=== PATIENT | female | born 1955 | race Caucasian/White ===

== ENCOUNTER 2022-09-12 22:16 | Emergency (ER) | payer MEDICARE ==
[~2022-09-12] VITALS: Ht 167.6 cm; Wt 64.4 kg
[2022-09-12 22:27] VITALS: BP 167/105
[2022-09-12 22:31] VITALS: BP 162/90
[2022-09-12] MEDS ORDERED: CLARITIN10 M1 PO (22:36)
[2022-09-12] MEDS ORDERED: ALLERGY RE50 MCG/ACT NAB (22:37)
[2022-09-12 22:45] VITALS: BP 143/78
[2022-09-12 23:13] LABS: BASO% 1.5 % (0-3); EOS% 3.2 % (0-8); HEMATOCRIT 38.6 % (37.0-47.0); HEMOGLOBIN 12.6 g/dl (12.0-16.0); IMMATURE GRANULOCYTES 0.1 % (0.0-5.0); MEAN CELL VOLUME 90.6 fL CALC (80.0-100.0); MEAN CORPUSCULAR HGB 29.6 pG CALC (26.0-32.0); MEAN CORPUSCULAR HGB CONC 32.6 g/dL CAL (32.0-36.0); MONO% 7.2 % (2-13); NEUT# 4.27 thou/uL (2.00-7.15); RED BLOOD COUNT 4.26 mill/uL (4.20-5.60); RED CELL DISTRI WIDTH 12.4 % (11.5-15.5)
[2022-09-12 23:29] LABS: ALBUMIN 4.6 g/dL (3.2-5.0); ALKALINE PHOSPHATASE 84 u/l (38-126); ANION GAP 13 (6-22 (CALC)); BILIRUBIN, TOTAL 0.3 mg/dL (0.02-1.3); BUN 12 mg/dL (8-23); BUN/CREATININE RATIO 16 (12-20 (CALC)); CARBON DIOXIDE 27 mmol/l (22-30); CHLORIDE 100 mmol/l (95-108); CREATININE 0.8 mg/dL (0.5-1.0); GFR FOR AFR.AMER. > 60 ML/MIN (>=60 (CALC)); GFR OTHER RACES > 60 ML/MIN (>=60 (CALC)); POTASSIUM 4.2 mmol/l (3.5-5.1); SGOT/AST 32 u/l (9-36); SODIUM 135 mmol/l (137-146); TOTAL PROTEIN 7.8 g/dL (6.3-8.2)
[2022-09-12] MEDS ORDERED: CLARITIN10 M2 PO (23:38)
[2022-09-12] MEDS ORDERED: AMOXICILLIN500 MG PO (23:38)
[2022-09-12 23:40] VITALS: BP 143/78
== END 2022-09-13 00:02 | disposition home or self-care (01) ==
LOC: ED 22:16
PROVIDERS: Emergency Medicine
DX: J06.9 Acute upper respiratory infection, unspecified (principal); Z20.822 Contact with and (suspected) exposure to COVID-19

== ENCOUNTER 2022-09-22 17:33 | Emergency (ER) | payer MEDICARE ==
[~2022-09-22] VITALS: Ht 167.6 cm; Wt 61.0 kg
[~2022-09-22 17:33] MED LIST: ALLERGY RE50 MCG/ACT NAB; AMOXICILLIN500 MG PO; CLARITIN10 M1 PO; CLARITIN10 M2 PO
[2022-09-22] MEDS ORDERED: LEVOCETIRIZINE D5 MG PO (19:09)
[2022-09-22] MEDS ORDERED: MEDDOSEPAK PO (19:09)
[2022-09-22 20:02] VITALS: BP 169/97
== END 2022-09-22 20:12 | disposition home or self-care (01) ==
LOC: ED 17:33
DX: J30.9 Allergic rhinitis, unspecified (principal)

== ENCOUNTER 2022-10-13 15:29 | Emergency (ER) | payer MEDICARE ==
[~2022-10-13] VITALS: Ht 167.6 cm; Wt 61.7 kg
[2022-10-13] VITALS (8 sets, daily range): BP systolic 119–168; BP diastolic 69–100
[~2022-10-13 15:29] MED LIST changes: +LEVOCETIRIZINE D5 MG PO; +MEDDOSEPAK PO
[2022-10-13 16:32] LABS: EOS% 1.5 % (0-8); HEMATOCRIT 39.9 % (37.0-47.0); IMMATURE GRANULOCYTES 0.1 % (0.0-5.0); LYMPH% 27.6 % (15-41); MEAN CELL VOLUME 90.9 fL CALC (80.0-100.0); MEAN CORPUSCULAR HGB 29.6 pG CALC (26.0-32.0); MEAN CORPUSCULAR HGB CONC 32.6 g/dL CAL (32.0-36.0); MONO% 6.8 % (2-13); NEUT# 5.1 thou/uL (2.00-7.15); RED BLOOD COUNT 4.39 mill/uL (4.20-5.60); RED CELL DISTRI WIDTH 12.9 % (11.5-15.5)
[2022-10-13 16:36] LABS: URINE BILIRUBIN - DIPSTICK NEGATIVE (NEGATIVE); URINE BLOOD DIPSTICK TRACE-INTACT (NEGATIVE); URINE COLOR YELLOW; URINE GLUCOSE - DIPSTICK NEGATIVE (NEGATIVE); URINE KETONE 15 mg/dL (NEGATIVE); URINE LEUK ESTERASE NEGATIVE (NEGATIVE); URINE PROTEIN - DIPSTICK NEGATIVE (NEG-TRACE); URINE UROBILINOGEN - DIPSTICK 0.2 E.U./dL (0.2)
[2022-10-13 16:40] LABS: ALBUMIN 4.6 g/dL (3.2-5.0); ALKALINE PHOSPHATASE 99 u/l (38-126); BUN 8 mg/dL (8-23); BUN/CREATININE RATIO 13 (12-20 (CALC)); CHLORIDE 99 mmol/l (95-108); CREATININE 0.7 mg/dL (0.5-1.0); GFR FOR AFR.AMER. > 60 ML/MIN (>=60 (CALC)); GFR OTHER RACES > 60 ML/MIN (>=60 (CALC)); LIPASE 116 u/l (23-300); POTASSIUM 3.8 mmol/l (3.5-5.1); SGOT/AST 38 u/l (9-36); SODIUM 133 mmol/l (137-146); TOTAL PROTEIN 7.7 g/dL (6.3-8.2)
[2022-10-13 16:41] LABS: ANION GAP 17 (6-22 (CALC)); BILIRUBIN, TOTAL 0.5 mg/dL (0.02-1.3); CARBON DIOXIDE 21 mmol/l (22-30)
[2022-10-13 16:41] LABS: URINE NITRITE - DIPSTICK NEGATIVE (Negative)
[2022-10-13] MEDS ORDERED: PROTONIX40 M2 PO (18:08)
== END 2022-10-13 19:08 | disposition home or self-care (01) ==
LOC: ED 15:29
PROVIDERS: Nurse Practitioner
DX: K21.9 Gastro-esophageal reflux disease without esophagitis (principal)
CPT/HCPCS: Q9967; S0164

== ENCOUNTER 2022-12-12 22:47 | Emergency (ER) | payer MEDICARE ==
[~2022-12-12] VITALS: Ht 167.6 cm; Wt 63.6 kg
[~2022-12-12 22:47] MED LIST changes: +PROTONIX40 M2 PO
[2022-12-12 23:39] LABS: BASO% 0.6 % (0-3); EOS% 1.8 % (0-8); HEMATOCRIT 37.8 % (37.0-47.0); HEMOGLOBIN 12.9 g/dl (12.0-16.0); IMMATURE GRANULOCYTES 0.1 % (0.0-5.0); LYMPH% 26.6 % (15-41); MEAN CELL VOLUME 89.6 fL CALC (80.0-100.0); MEAN CORPUSCULAR HGB 30.6 pG CALC (26.0-32.0); MEAN CORPUSCULAR HGB CONC 34.1 g/dL CAL (32.0-36.0); MONO% 8.9 % (2-13); NEUT# 6.29 thou/uL (2.00-7.15); RED BLOOD COUNT 4.22 mill/uL (4.20-5.60); RED CELL DISTRI WIDTH 12.1 % (11.5-15.5)
[2022-12-12 23:40] LABS: URINE BILIRUBIN - DIPSTICK Negative (NEGATIVE); URINE BLOOD DIPSTICK Small (NEGATIVE); URINE GLUCOSE - DIPSTICK Negative (NEGATIVE); URINE KETONE 15 mg/dL (NEGATIVE); URINE NITRITE - DIPSTICK Negative (Negative); URINE PH 5.5 (4.5-8.0); URINE PROTEIN - DIPSTICK Negative (NEG-TRACE); URINE SPECIFIC GRAVITY <=1.005; URINE UROBILINOGEN - DIPSTICK 0.2 E.U./dL (0.2)
[2022-12-12 23:41] LABS: URINE COLOR Yellow; URINE LEUK ESTERASE Negative (NEGATIVE)
[2022-12-12 23:47] LABS: ALBUMIN 4.6 g/dL (3.2-5.0); ALKALINE PHOSPHATASE 106 u/l (38-126); ANION GAP 16 (6-22 (CALC)); BUN 9 mg/dL (8-23); BUN/CREATININE RATIO 14 (12-20 (CALC)); CARBON DIOXIDE 23 mmol/l (22-30); CHLORIDE 94 mmol/l (95-108); CPK 80 u/l (30-135); CREATININE 0.7 mg/dL (0.5-1.0); GFR FOR AFR.AMER. > 60 ML/MIN (>=60 (CALC)); GFR OTHER RACES > 60 ML/MIN (>=60 (CALC)); LIPASE 91 u/l (23-300); POTASSIUM 3.6 mmol/l (3.5-5.1); SGOT/AST 35 u/l (9-36); SODIUM 129 mmol/l (137-146); TOTAL PROTEIN 7.9 g/dL (6.3-8.2)
[2022-12-12 23:48] LABS: URINE WBC 0-2 WBC/hpf (0-5)
[2022-12-12 23:49] LABS: URINE BACTERIA FEW hpf; URINE EPITHELIAL CELLS FEW EPI/hpf (0-FEW)
[2022-12-12 23:53] LABS: BILIRUBIN, TOTAL 0.8 mg/dL (0.02-1.3)
[2022-12-13 00:45] VITALS: BP 168/75
== END 2022-12-13 01:01 | disposition home or self-care (01) ==
LOC: ED 22:47
PROVIDERS: Internal Medicine
DX: R10.11 Right upper quadrant pain (principal)

== ENCOUNTER 2023-05-22 07:49 | Emergency (ER) | payer MEDICARE ==
[~2023-05-22] VITALS: Ht 167.6 cm; Wt 68.0 kg
[~2023-05-22 07:49] MED LIST changes: +AMOX/K CLAV875 M1 PO; +PREDNISONE50 MG PO
[2023-05-22 07:53] VITALS: BP 168/96
[2023-05-22 08:00] VITALS: BP 173/85
[2023-05-22 08:15] VITALS: BP 154/70
[2023-05-22 08:47] LABS: BASO% 1.8 % (0-3); EOS% 1.8 % (0-8); HEMATOCRIT 37.8 % (37.0-47.0); HEMOGLOBIN 12.7 g/dl (12.0-16.0); LYMPH% 31.8 % (15-41); MEAN CELL VOLUME 90.4 fL CALC (80.0-100.0); MEAN CORPUSCULAR HGB 30.4 pG CALC (26.0-32.0); MEAN CORPUSCULAR HGB CONC 33.6 g/dL CAL (32.0-36.0); MONO% 8.8 % (2-13); NEUT# 2.48 thou/uL (2.00-7.15); NEUT% 55.8 % (42-76); RED BLOOD COUNT 4.18 mill/uL (4.20-5.60); RED CELL DISTRI WIDTH 12.3 % (11.5-15.5)
[2023-05-22 08:52] LABS: ALBUMIN 4.6 g/dL (3.2-5.0); ALKALINE PHOSPHATASE 102 u/l (38-126); ANION GAP 15 (6-22 (CALC)); BILIRUBIN, TOTAL 0.6 mg/dL (0.02-1.3); BUN 6 mg/dL (8-23); BUN/CREATININE RATIO 9 (12-20 (CALC)); CARBON DIOXIDE 25 mmol/l (22-30); CHLORIDE 103 mmol/l (95-108); CREATININE 0.6 mg/dL (0.5-1.0); GFR FOR AFR.AMER. > 60 ML/MIN (>=60 (CALC)); GFR OTHER RACES > 60 ML/MIN (>=60 (CALC)); LIPASE 78 u/l (23-300); POTASSIUM 3.8 mmol/l (3.5-5.1); SGOT/AST 36 u/l (9-36); TOTAL PROTEIN 7.5 g/dL (6.3-8.2)
[2023-05-22 09:02] LABS: SODIUM 139 mmol/l (137-146)
[2023-05-22] MEDS ORDERED: PROTONIX40 MG PO (10:12)
[2023-05-22 10:41] VITALS: BP 154/70
== END 2023-05-22 10:40 | disposition home or self-care (01) ==
LOC: ED 07:49
PROVIDERS: Emergency Medicine
DX: K21.9 Gastro-esophageal reflux disease without esophagitis (principal)
CPT/HCPCS: Q9967; S0164

== ENCOUNTER 2023-12-22 10:04 | Emergency (ER) | payer MEDICARE ==
[2023-12-22] VITALS (15 sets, daily range): BP systolic 123–175; BP diastolic 64–88
[~2023-12-22] VITALS: Ht 167.6 cm; Wt 63.0 kg
[~2023-12-22 10:04] MED LIST changes: +DICYCLOMINE HYD10 MG PO; +ONDANSETRON4 MG PO; +PROTONIX40 MG PO
[2023-12-22] MEDS ORDERED: SODIUM CHLORIDE 0.9% 1,000 ML IV ONE (10:25)
[2023-12-22] MEDS ORDERED: ONDANSETRON HCl 4 MG/2 ML SDV IV ONE ×2 (10:25→11:05)
[2023-12-22 10:41] LABS: BASO% 1.2 % (0-3); EOS% 0.7 % (0-8); HEMATOCRIT 36.8 % (37.0-47.0); HEMOGLOBIN 12.6 g/dl (12.0-16.0); IMMATURE GRANULOCYTES 0.2 % (0.0-5.0); LYMPH% 36.9 % (15-41); MEAN CELL VOLUME 89.5 fL CALC (80.0-100.0); MEAN CORPUSCULAR HGB 30.7 pG CALC (26.0-32.0); MEAN CORPUSCULAR HGB CONC 34.2 g/dL CAL (32.0-36.0); MONO% 6.1 % (2-13); NEUT# 3.32 thou/uL (2.00-7.15); NEUT% 54.9 % (42-76); RED BLOOD COUNT 4.11 mill/uL (4.20-5.60); RED CELL DISTRI WIDTH 12.9 % (11.5-15.5)
[2023-12-22 10:57] LABS: ALBUMIN 4.4 g/dL (3.2-5.0); BILIRUBIN, TOTAL 0.4 mg/dL (0.02-1.3); CREATININE 0.6 mg/dL (0.5-1.0); TOTAL PROTEIN 7.2 g/dL (6.3-8.2)
[2023-12-22 12:17] LABS: URINE BILIRUBIN - DIPSTICK Negative (NEGATIVE); URINE BLOOD DIPSTICK Trace-lysed (NEGATIVE); URINE GLUCOSE - DIPSTICK Negative (NEGATIVE); URINE KETONE 15 mg/dL (NEGATIVE); URINE LEUK ESTERASE Negative (NEGATIVE); URINE NITRITE - DIPSTICK Negative (Negative); URINE PH 5.5 (4.5-8.0); URINE PROTEIN - DIPSTICK Negative (NEG-TRACE); URINE SPECIFIC GRAVITY <=1.005; URINE UROBILINOGEN - DIPSTICK 0.2 E.U./dL (0.2)
[2023-12-22 12:24] LABS: URINE COLOR Yellow
[2023-12-22] MEDS ORDERED: ZOFRAN4 MG/TAB PO (14:02)
== END 2023-12-22 14:20 | disposition home or self-care (01) ==
LOC: ED 10:04
PROVIDERS: Family Medicine
DX: R10.13 Epigastric pain (principal); R10.11 Right upper quadrant pain; Z20.822 Contact with and (suspected) exposure to COVID-19
CPT/HCPCS: Q9967

== ENCOUNTER 2024-05-25 08:29 | Emergency (ER) | payer MEDICARE ==
[~2024-05-25] VITALS: Ht 167.6 cm; Wt 53.0 kg
[2024-05-25] VITALS (8 sets, daily range): BP systolic 107–185; BP diastolic 69–93
[~2024-05-25 08:29] MED LIST changes: +ZOFRAN4 MG/TAB PO
[2024-05-25] MEDS ORDERED: Pantoprazole Sodium 40 MG VIAL (Protonix) IV ONE (08:50)
[2024-05-25] MEDS ORDERED: ASPIRIN 81 MG/TAB PO ONE (08:50)
[2024-05-25] MEDS ORDERED: ONDANSETRON HCl 4 MG/2 ML SDV IV ONE (08:50)
[2024-05-25] MEDS ORDERED: SODIUM CHLORIDE 0.9% 1,000 ML IV ONE (08:50)
[2024-05-25] MEDS ORDERED: NITROGLYCERIN 2% OINT UD 1 GM/PAK TD ONE (08:55)
[2024-05-25 09:11] LABS: BASO% 0.8 % (0-3); EOS% 0.6 % (0-8); HEMATOCRIT 39.8 % (37.0-47.0); HEMOGLOBIN 13.2 g/dl (12.0-16.0); IMMATURE GRANULOCYTES 0.6 % (0.0-5.0); LYMPH% 25.5 % (15-41); MEAN CORPUSCULAR HGB 30.8 pG CALC (26.0-32.0); MEAN CORPUSCULAR HGB CONC 33.2 g/dL CAL (32.0-36.0); MONO% 4.5 % (2-13); NEUT# 5.27 thou/uL (2.00-7.15); RED BLOOD COUNT 4.28 mill/uL (4.20-5.60); RED CELL DISTRI WIDTH 12.8 % (11.5-15.5)
[2024-05-25 09:20] LABS: INTERNATIONAL NORMALIZED RATIO 0.9 RATIO (0.7-1.3)
[2024-05-25] MEDS ORDERED: MIDAZOLAM HCL 2 MG/2 ML VIAL IV ONE (09:20)
[2024-05-25 09:26] LABS: ALBUMIN 4.4 g/dL (3.2-5.0); ALKALINE PHOSPHATASE 93 u/l (38-126); ANION GAP 17 (6-22 (CALC)); BILIRUBIN, TOTAL 0.4 mg/dL (0.02-1.3); BUN 15 mg/dL (8-23); BUN/CREATININE RATIO 24 (12-20 (CALC)); CARBON DIOXIDE 18 mmol/l (22-30); CHLORIDE 103 mmol/l (95-108); CREATININE 0.6 mg/dL (0.5-1.0); ESTIMATED GFR 98 ML/MIN (>=90 (CALC)); LIPASE 128 u/l (23-300); POTASSIUM 3.5 mmol/l (3.5-5.1); SGOT/AST 31 u/l (9-36); SODIUM 135 mmol/l (137-146); TOTAL PROTEIN 7.1 g/dL (6.3-8.2)
[2024-05-25] MEDS ORDERED: OMEPRAZOLE DR40 MG PO (10:13)
== END 2024-05-25 10:31 | disposition home or self-care (01) ==
LOC: ED 08:29
PROVIDERS: Family Medicine
DX: K21.9 Gastro-esophageal reflux disease without esophagitis (principal); F41.9 Anxiety disorder, unspecified; K44.9 Diaphragmatic hernia without obstruction or gangrene; Z87.11 Personal history of peptic ulcer disease; R07.9 Chest pain, unspecified
CPT/HCPCS: J2405; J2470